=== PATIENT | male | born 1985 | race Hispanic/Latino ===

== ENCOUNTER 2019-07-18 06:45 | Emergency (ER) | payer SELFPAY ==
[2019-07-18] MEDS ORDERED: FENTANYL CITR 100 MCG/2 ML ONE (07:15)
[2019-07-18] MEDS ORDERED: ONDANSETRON 4 MG/2 ML VIAL ONE (07:15)
[2019-07-18 07:27] LABS: Absolute Lymphocytes (CBC) 2.4 K/uL (0.7-4.9); Basophils % 0.6 % (0-1.3); Hematocrit 43.3 % (39.6-49.0); Lymphocytes % 29.2 % (15.3-44.8); MPV 7.6 fL (7.6-11.3); RBC Red Blood Cell Count 4.74 M/uL (4.33-5.43)
--- NOTE | 2019-07-18 07:41 | RAD REPORT ---
EXAM DESCRIPTION: CT - Stone Protocol - 07/18/2019 7:21 am CLINICAL HISTORY: FLANK PAIN, left back and flank pain COMPARISON: No comparisons TECHNIQUE: Axial 5 mm thick images were obtained without oral or IV contrast. The [id number] span s the entirety of the system including uppermost abdomen and lung bases. All CT scans are performed using dose optimization technique as appropriate and may include automated exposure control or mA/KV adjustment according to patient size. FINDINGS: Mild left-sided hydronephrosis is present secondary to a 4 mm calcification at the left UV J. Left kidney is minimally edematous relative to the right. No other obstructing or nonobstructing c alculi. No hydronephrosis on the right. No suspicious renal masses. Isodense masses and pyelonephriti s are not excluded on a stone protocol CT scan. No urinary bladder suspicious finding. No significant adrenal finding. Imaged portions of the liver, spleen and pancreas show no suspicious findings on non-contrast imaging . No gallbladder or biliary tree abnormality identified. No suspicious bowel findings. No hernia, mass or bulky lymphadenopathy noted. No free air, free fluid or inflammatory stranding. No significant bony abnormality. IMPRESSION: Left UVJ 4 mm calculus causing mild hydronephrosis. Isodense masses and pyelonephritis are not excluded on stone protocol technique.
[2019-07-18 07:42] LABS: BUN Blood Urea Nitrogen 6 mg/dL (7-18); Bicarbonate 27 mmol/L (21-32); Glucose Level 119 mg/dL (74-106); Potassium 3.5 mmol/L (3.5-5.1); Sodium Level 140 mmol/L (136-145)
[2019-07-18 07:43] LABS: Urine Blood TRACE (NEG); Urine Glucose NEGATIVE (NEG); Urine Protein NEGATIVE (NEG); Urine Specific Gravity >1.030 (1.005-1.030); Urine pH 5.5 (5.0-7.0)
[2019-07-18] MEDS ORDERED: TAMSULOSIN 0.4 MG SR CAP ONE (07:56)
[2019-07-18] MEDS ORDERED: KETOROLAC 30 MG/ML INJ ONE (07:56)
[2019-07-18] MEDS ORDERED: NA CHLORIDE 0.9% 1,000 ML ONE (07:57)
[2019-07-18] MEDS ORDERED: Magnesium Sulfate 2gm IVPB 2 G/50 ML BAG IV ONE (07:57)
--- NOTE | 2019-07-18 07:57 | EDPHYS ---
Physician Documentation [facility] Name: Amadou Hewitt III Age: 34 yrs Sex: Male : 1985 Arrival Date: 07/18/2019 Time: 06:47 Bed 7 Private MD: ED Physician Albino Sharp HPI: 07/18 07:38 This 34 yrs old Male presents to ER via Ambulatory with complaints of Back kb Pain. 07:39 The patient complains of pain in the left flank. The pain radiates to the abdomen. kb Onset: The symptoms/episode began/occurred 2 day(s) ago. Modifying factors: The symptoms are alleviated by nothing. the symptoms are aggravated by nothing. Associated signs and symptoms: The patient has no apparent associated signs or symptoms. Severity of pain: At its worst the pain was moderate in the emergency department the pain is unchanged. The patient has experienced a previous episode. The patient has not recently seen a physician. Pt reports left low back pain that started the night before last. Reports pain was intermittent at first, then became constant this morning. Pt has had a kidney stone in the past, but the pain then was sharp and different than the pain now. Denies urinary symptoms. Historical: - Allergies: 07:08 No Known Allergies; hb - Home Meds: 07:08 None [Active]; hb - PMHx: 07:08 None; hb - PSHx: 07:08 None; hb - Immunization history:: Adult Immunizations up to date. - Coronavirus screen:: The patient has NOT traveled to [place] in the past 14 days. The patient has NOT had contact with known/suspected case of Coronavirus? Proceed with normal triage procedures. - Social history:: Smoking status: Patient denies any tobacco usage or history of. - Ebola Screening: : No symptoms or risks identified at this time. ROS: 07:34 Constitutional: Negative for fever, chills, and weight loss, ENT: Negative for injury, kb pain, and discharge, Neck: Negative for injury, pain, and swelling, Cardiovascular: Negative for chest pain, palpitations, and edema, Respiratory: Negative for shortness of breath, cough, wheezing, and pleuritic chest pain, Abdomen/GI: Negative for abdominal pain, nausea, vomiting, diarrhea, and constipation, : Negative for injury, bleeding, discharge, and swelling, MS/Extremity: Negative for injury and deformity, Skin: Negative for injury, rash, and discoloration, Neuro: Negative for headache, weakness, numbness, tingling, and seizure. 07:34 Back: Positive for flank pain, on the left. Exam: 07:34 Constitutional: This is a well developed, well nourished patient who is awake, alert, kb and in no acute distress. Head/Face: Normocephalic, atraumatic. ENT: Nares patent. No nasal discharge, no septal abnormalities noted. Tympanic membranes are normal and external auditory canals are clear. Oropharynx with no redness, swelling, or masses, exudates, or evidence of obstruction, uvula midline. Mucous membranes moist. Neck: Trachea midline, no thyromegaly or masses palpated, and no cervical lymphadenopathy. Supple, full range of motion without nuchal rigidity, or vertebral point tenderness. No Meningismus. Chest/axilla: Normal chest wall appearance and motion. Nontender with no deformity. No lesions are appreciated. Cardiovascular: Regular rate and rhythm with a normal S1 and S2. No gallops, murmurs, or rubs. Normal PMI, no JVD. No pulse deficits. Respiratory: Lungs have equal breath sounds bilaterally, clear to auscultation and percussion. No rales, rhonchi or wheezes noted. No increased work of breathing, no retractions or nasal flaring. Abdomen/GI: Soft, non-tender, with normal bowel sounds. No distension or tympany. No guarding or rebound. No evidence of tenderness throughout. Skin: Warm, dry with normal turgor. Normal color with no rashes, no lesions, and no evidence of cellulitis. MS/ Extremity: Pulses equal, no cyanosis. Neurovascular intact. Full, normal range of motion. Neuro: Awake and alert, GCS 15, oriented to person, place, time, and situation. Cranial nerves II-XII grossly intact. Motor strength 5/5 in all extremities. Sensory grossly intact. Cerebellar exam normal. Normal gait. 07:34 Back: pain, that is moderate, ROM is normal, normal spinal alignment noted, CVA tenderness, that is moderate, is noted on the left. Vital Signs: 07:07 BP 154 / 104; Pulse 70; Resp 16; Temp 97.8(TE); Pulse Ox 100% ; Pain 8/10; hb 08:07 BP 132 / 85; Pulse 70; Resp 16; Pulse Ox 100% on R/A; Pain 4/10; hb 08:50 BP 125 / 81; Pulse 54; Resp 16; Pulse Ox 100% on R/A; hb MDM: 06:53 Patient medically screened. kb 07:30 Data reviewed: vital signs, nurses notes. Data interpreted: Pulse oximetry: on room air kb is 100 %. Interpretation: normal. 07:47 Counseling: I had a detailed discussion with the patient and/or guardian regarding: the kb historical points, exam findings, and any diagnostic results supporting the discharge/admit diagnosis, lab results, radiology results, the need for outpatient follow up, a urologist, to return to the emergency department if symptoms worsen or persist or if there are any questions or concerns that arise at home. 07/18 07:10 Order name: Basic Metabolic Panel kb 07/18 07:10 Order name: CBC with Diff kb 07/18 07:21 Order name: Urine Dipstick--Ancillary (enter results) bd 07/18 07:34 Order name: CBC with Automated Diff; Complete Time: 07:41 EDMS 07/18 07:43 Order name: Basic Metabolic Panel; Complete Time: 07:44 EDMS 07/18 07:44 Order name: Urine Dipstick-Ancillary; Complete Time: 07:47 EDMS 07/18 07:10 Order name: CT Stone Protocol kb 07/18 07:44 Order name: CT; Complete Time: 07:44 EDMS 07/18 07:10 Order name: IV Saline Lock; Complete Time: 07:19 kb 07/18 07:10 Order name: Labs collected and sent; Complete Time: 07:19 kb 07/18 07:10 Order name: Urine Dipstick-Ancillary (obtain specimen); Complete Time: 07:20 kb Administered Medications: 07:15 Drug: Zofran 4 mg Route: IVP; Site: right forearm; bp 07:36 Follow up: Response: Nausea is decreased bp 07:15 Drug: fentaNYL (PF) 25 mcg Route: IVP; Site: right forearm; bp 07:35 Follow up: Response: Pain is decreased bp 07:59 Drug: TORadol - Ketorolac 15 mg Route: IVP; Site: right antecubital; hb 08:30 Follow up: Response: No adverse reaction hb 07:59 Drug: Magnesium Sulfate 2 grams Route: IVPB; Infused Over: 1 hrs; Site: right hb antecubital; 09:10 Follow up: Response: No adverse reaction; IV Status: Completed infusion; IV Intake: 50mlhb 08:01 Drug: Flomax 0.4 mg Route: PO; hb 08:40 Follow up: Response: No adverse reaction hb 08:01 Drug: NS 0.9% 1000 ml Route: IV; Rate: 1000 ml; Site: right antecubital; hb 09:10 Follow up: Response: No adverse reaction; IV Status: Completed infusion; IV Intake: hb 1000ml Disposition: 07/19 08:23 Co-signature as Attending Physician, Albino Sharp MD I agree with the assessment and tw4 plan of care. Disposition: 07/18/19 07:56 Discharged to Home. Impression: Calculus of kidney and ureter. - Condition is Stable. - Discharge Instructions: Kidney Stones, [id number], Dietary Guidelines to Help Prevent Kidney Stones. - Prescriptions for Tylenol- Codeine #3 300-30 mg Oral Tablet - take 2 tablets by ORAL route every 6 hours As needed; 10 tablet. Zofran 4 mg Oral Tablet - take 1 tablet by ORAL route every 6 hours As needed; 20 tablet. Flomax 0.4 mg Oral Capsule, Sust. Release 24 hr - take 1 capsule by ORAL route once daily 1/2 hour following the same meal each day; 10 capsule. Diclofenac Sodium 75 mg Oral Tablet, Delayed Release (E.C.) - take 1 tablet by ORAL route 2 times per day As needed; 30 tablet. - Medication Reconciliation Form, Thank You Letter, Antibiotic Education, Prescription Opioid Use, Work release form form. - Follow up: Emergency Department; When: As needed; Reason: Worsening of condition. Follow up: Private Physician; When: 2 - 3 days; Reason: Recheck today's complaints, Continuance of care, Re-evaluation by your physician. Signatures: Dispatcher [employer] Tammie Szymanski FNP-C FNP-Ckb Baxter, Heather, RN RN James Cesar, RN RN Albino Hoskins MD MD tw4 Corrections: (The following items were deleted from the chart) 07/18 09:11 07:56 07/18/2019 07:56 Discharged to Home. Impression: Calculus of kidney and ureter. hb Condition is Stable. Discharge Instructions: Kidney Stones, [id number], Dietary Guidelines to Help Prevent Kidney Stones. Prescriptions for Tylenol-Codeine #3 300-30 mg Oral Tablet - take 2 tablets by ORAL route every 6 hours As needed; 10 tablet, Zofran 4 mg Oral Tablet - take 1 tablet by ORAL route every 6 hours As needed; 20 tablet, Flomax 0.4 mg Oral Capsule, Sust. Release 24 hr - take 1 capsule by ORAL route once daily 1/2 hour following the same meal each day; 10 capsule, Diclofenac Sodium 75 mg Oral Tablet, Delayed Release (E.C.) - take 1 tablet by ORAL route 2 times per day As needed; 30 tablet. and Forms are Medication Reconciliation Form, Thank You Letter, Antibiotic Education, Prescription Opioid Use. Follow up: Emergency Department; When: As needed; Reason: Worsening of condition. Follow up: Private Physician; When: 2 - 3 days; Reason: Recheck today's complaints, Continuance of care, Re-evaluation by your physician. kb
--- NOTE | 2019-07-18 07:57 | ER ---
Nurse's Notes [facility] Name: Amadou Hewitt III Age: 34 yrs Sex: Male : 1985 Arrival Date: 07/18/2019 Time: 06:47 Bed 7 Private MD: Diagnosis: Calculus of kidney and ureter Presentation: 07/18 07:07 Presenting complaint: Left low back pain that radiates to left flank x 2 days. Denies hb urinary s/s. Transition of care: patient was not received from another setting of care. Onset of symptoms was July 17, 2019. Risk Assessment: Do you want to hurt yourself or someone else? Patient reports no desire to harm self or others. Initial Sepsis Screen: Does the patient meet any 2 criteria? No. Patient's initial sepsis screen is negative. Does the patient have a suspected source of infection? No. Patient's initial sepsis screen is negative. Care prior to arrival: None. 07:07 Method Of Arrival: Ambulatory hb 07:07 Acuity: SAMM 3 hb Triage Assessment: 07:10 General: Appears in no apparent distress. uncomfortable, Behavior is cooperative, bp appropriate for age, anxious. Pain: Complains of pain in right flank. EENT: No deficits noted. Neuro: No deficits noted. Cardiovascular: No deficits noted. Respiratory: No deficits noted. GI: No signs and/or symptoms were reported involving the gastrointestinal system. : Reports pain in right flank(s). Derm: Skin is clammy, Skin is pale, Skin temperature is cool. Musculoskeletal: No deficits noted. Historical: - Allergies: 07:08 No Known Allergies; hb - Home Meds: 07:08 None [Active]; hb - PMHx: 07:08 None; hb - PSHx: 07:08 None; hb - Immunization history:: Adult Immunizations up to date. - Coronavirus screen:: The patient has NOT traveled to [place] in the past 14 days. The patient has NOT had contact with known/suspected case of Coronavirus? Proceed with normal triage procedures. - Social history:: Smoking status: Patient denies any tobacco usage or history of. - Ebola Screening: : No symptoms or risks identified at this time. Screenin:18 Abuse screen: Denies threats or abuse. Denies injuries from another. Nutritional bp screening: No deficits noted. Tuberculosis screening: No symptoms or risk factors identified. Fall Risk None identified. Assessment: 07:10 General: SEE TRIAGE NOTE. bp 07:18 Reassessment: PT TO CT. bp 08:07 Reassessment: Discharge pending completion of IV medication. NAD. VSS. remains at bedside. 09:00 Reassessment: Patient appears in no apparent distress at this time. No changes from previously documented assessment. Patient and/or family updated on plan of care and expected duration. Pain level reassessed. Vital Signs: 07:07 BP 154 / 104; Pulse 70; Resp 16; Temp 97.8(TE); Pulse Ox 100% ; Pain 8/10; hb 08:07 BP 132 / 85; Pulse 70; Resp 16; Pulse Ox 100% on R/A; Pain 4/10; hb 08:50 BP 125 / 81; Pulse 54; Resp 16; Pulse Ox 100% on R/A; hb ED Course: 06:47 Patient arrived in ED. ds1 06:53 Tammie Leija [facility]C [facility] kb 06:53 Albino Sharp MD is Attending Physician. kb 07:07 Diann Kumari, NICOLLE is Primary Nurse. hb 07:08 Triage completed. hb 07:08 Arm band placed on. hb 07:15 Inserted saline lock: 20 gauge in right forearm, using aseptic technique. Blood bp collected. 07:18 Patient has correct armband on for positive identification. Bed in low position. Call bp light in reach. Side rails up X2. 09:00 No provider procedures requiring assistance completed. IV discontinued, intact, hb bleeding controlled, No redness/swelling at site. Pressure dressing applied. Administered Medications: 07:15 Drug: Zofran 4 mg Route: IVP; Site: right forearm; bp 07:36 Follow up: Response: Nausea is decreased bp 07:15 Drug: fentaNYL (PF) 25 mcg Route: IVP; Site: right forearm; bp 07:35 Follow up: Response: Pain is decreased bp 07:59 Drug: TORadol - Ketorolac 15 mg Route: IVP; Site: right antecubital; hb 08:30 Follow up: Response: No adverse reaction hb 07:59 Drug: Magnesium Sulfate 2 grams Route: IVPB; Infused Over: 1 hrs; Site: right hb antecubital; 09:10 Follow up: Response: No adverse reaction; IV Status: Completed infusion; IV Intake: 50mlhb 08:01 Drug: Flomax 0.4 mg Route: PO; hb 08:40 Follow up: Response: No adverse reaction hb 08:01 Drug: NS 0.9% 1000 ml Route: IV; Rate: 1000 ml; Site: right antecubital; hb 09:10 Follow up: Response: No adverse reaction; IV Status: Completed infusion; IV Intake: hb 1000ml Intake: 09:10 IV: 1000ml; Total: 1000ml. hb 09:10 IV: 50ml; Total: 1050ml. hb Outcome: 07:56 Discharge ordered by . eloisa 09:00 Discharged to home ambulatory, with significant other. hb 09:00 Condition: stable 09:00 Discharge instructions given to patient, Instructed on discharge instructions, follow up and referral plans. medication usage, Demonstrated understanding of instructions, follow-up care, medications, Prescriptions given X 4. 09:11 Patient left the ED. hb Signatures: Tammie Leija, METALSMITH APPRENTICE-C METALSMITH APPRENTICE-Olya Lackey ds1 Diann Kumari, RN RN James Curry, RN RN bp
[2019-07-18] MEDS ORDERED: LIDOCAINE 1% MPF 5 ML VIAL ONE (23:23)
[2019-07-19 17:21] VITALS: TEMP 97.8; O2SAT 100
[2019-07-19 17:24] VITALS: BP 125/81
== END 2019-07-18 09:11 | disposition home or self-care (01) ==
LOC: ER 06:45
DX: N20.2 Calculus of kidney with calculus of ureter (principal)
CPT/HCPCS: 36415; 74176; 76377; 80048; 81003; 85025; 96365; 96375; 99284; J2405; J3010; J3475; J7030